=== PATIENT | female | born 1990 | race American Indian/Alaskan Native ===

== ENCOUNTER 2016-06-22 15:16 | Emergency (ER) | payer SELFPAY ==
[2016-06-22] MEDS ORDERED: TYLENOL ONE (16:36)
[2016-06-22] MEDS ORDERED: TYLENOL PO ONE (16:41)
[2016-06-22] MEDS ORDERED: TORADOL IM ONE (19:55)
--- NOTE | 2016-06-22 20:01 | Emergency Department Report ---
ED ENT HPI - General Chief complaint: Anxiety Stated complaint: CHEST PAIN Time Seen by Provider: 06/22/16 19:54 Source: patient Mode of arrival: Ambulatory Limitations: No Limitations - History of Present Illness Initial comments: 26 y/o female complain toothache x 3 days with mild edema note to the right jaw. MD complaint: tooth pain Onset/Timin -: days(s) Location: tooth # (30 and 32) Severity scale (0 -10): 8 Quality: aching Consistency: constant Improves with: none Worsens with: none Context- Dental: poor dental care Associated Symptoms: gum swelling - Related Data Previous Rx's Medication Instructions Recorded Last Taken Type Acetaminophen/Codeine [Tylenol #3] 1 tab PO Q4HR PRN #15 tablet 06/22/16 Unknown Rx Penicillin Vk [Veetids TAB] 250 mg PO QID #28 tablet 06/22/16 Unknown Rx Allergies Allergy/AdvReac Type Severity Reaction Status Date / Time No Known Allergies Allergy Unverified 06/22/16 15:30 ED Dental HPI - General Chief complaint: Anxiety Stated complaint: CHEST PAIN Time Seen by Provider: 06/22/16 19:54 Source: patient Mode of arrival: Ambulatory Limitations: No Limitations - Related Data Previous Rx's Medication Instructions Recorded Last Taken Type Acetaminophen/Codeine [Tylenol #3] 1 tab PO Q4HR PRN #15 tablet 06/22/16 Unknown Rx Penicillin Vk [Veetids TAB] 250 mg PO QID #28 tablet 06/22/16 Unknown Rx Allergies Allergy/AdvReac Type Severity Reaction Status Date / Time No Known Allergies Allergy Unverified 06/22/16 15:30 ED Review of Systems ROS: Stated complaint: CHEST PAIN Other details as noted in HPI Constitutional: denies: chills, fever Eyes: denies: eye pain, eye discharge, vision change ENT: dental pain. denies: ear pain, throat pain Respiratory: denies: cough, shortness of breath, wheezing Cardiovascular: denies: chest pain, palpitations Endocrine: no symptoms reported Gastrointestinal: denies: abdominal pain, nausea, diarrhea Genitourinary: denies: urgency, dysuria, discharge Musculoskeletal: denies: back pain, joint swelling, arthralgia Skin: denies: rash, lesions Neurological: denies: headache, weakness, paresthesias Psychiatric: denies: anxiety, depression Hematological/Lymphatic: denies: easy bleeding, easy bruising ED Past Medical Hx - Past Medical History Additional medical history: Anxiety, panic attacks - Surgical History Past Surgical History?: No - Social History Smoking Status: Current Some Day Smoker Substance Use Type: None - Medications Home Medications: Home Medications Medication Instructions Recorded Confirmed Last Taken Type Acetaminophen/Codeine [Tylenol #3] 1 tab PO Q4HR PRN #15 tablet 06/22/16 Unknown Rx Penicillin Vk [Veetids TAB] 250 mg PO QID #28 tablet 06/22/16 Unknown Rx ED Physical Exam - General Limitations: No Limitations General appearance: alert, in no apparent distress - Head Head exam: Present: atraumatic, normocephalic - Eye Eye exam: Present: normal appearance, PERRL - ENT ENT exam: Present: mucous membranes moist - Expanded ENT Exam Expanded Mouth exam: Absent: drooling, trismus, muffled voice Teeth exam: Present: dental caries, fractured tooth # Throat exam: Positive: normal inspection (29 and 32) - Neck Neck exam: Present: normal inspection - Respiratory Respiratory exam: Present: normal lung sounds bilaterally. Absent: respiratory distress, wheezes, rales - Cardiovascular Cardiovascular Exam: Present: regular rate, normal rhythm. Absent: systolic murmur, diastolic murmur, rubs, gallop - GI/Abdominal GI/Abdominal exam: Present: soft, normal bowel sounds - Extremities Exam Extremities exam: Present: normal inspection - Back Exam Back exam: Present: normal inspection - Neurological Exam Neurological exam: Present: alert, oriented X3 - Psychiatric Psychiatric exam: Present: normal affect, normal mood - Skin Skin exam: Present: warm, dry, intact, normal color. Absent: rash ED Course Vital Signs 06/22/16 06/22/16 15:30 16:42 Temperature 99.3 F Pulse Rate 105 H Respiratory 18 18 Rate Blood Pressure 111/77 O2 Sat by Pulse 100 Oximetry ED Medical Decision Making - Medical Decision Making toothache fracture teeth number 29 and 32 pt unable to have tooth extracted at present due to medicaid Critical care attestation.: If time is entered above; I have spent that time in minutes in the direct care of this critically ill patient, excluding procedure time. ED Disposition Clinical Impression: Toothache Disposition: DISCHARGED TO HOME OR SELFCARE Is pt being admited?: No Does the pt Need Aspirin: No Condition: Stable Instructions: Dental Abscess (ED), Dental Caries (ED), Toothache (ED) Prescriptions: Acetaminophen/Codeine [Tylenol #3] 1 tab PO Q4HR PRN #15 tablet PRN Reason: Pain Penicillin Vk [Veetids TAB] 250 mg PO QID #28 tablet Referrals: PRIMARY CARE, [Primary Care Provider] - 3-5 Days [facility] [Outside] - 3-5 Days [facility] [Outside] - 3-5 Days Forms: Work/School Release Form(ED) Time of Disposition: 20:02
[2016-06-22 20:14] VITALS: BP 120/83
== END 2016-06-22 20:13 | disposition home or self-care (01) ==
LOC: ED 15:16
DX: K08.89 Other specified disorders of teeth and supporting structures (principal); F41.9 Anxiety disorder, unspecified; F41.0 Panic disorder [episodic paroxysmal anxiety]; F17.200 Nicotine dependence, unspecified, uncomplicated
CPT/HCPCS: 96372; 99282; J1885

== ENCOUNTER 2016-08-07 19:28 | Emergency (ER) | payer MEDICAID ==
[2016-08-07 20:18] VITALS: BP 103/67
[2016-08-07 20:35] LABS: Basophils % (Auto) 1.1 % (0.0-1.8); Eosinophils % (Auto) 3.6 % (0.0-4.3); Hematocrit 40.7 % (30.3-42.9); Hemoglobin 13.5 gm/dl (10.1-14.3); Mean Corpuscular HGB Conc 33 % (30-34); Mean Corpuscular Hemoglobin 28 pg (28-32); Mean Corpuscular Volume 83 fl (79-97); Platelet Count 270 K/mm3 (140-440); Red Cell Distribution Width 14.4 % (13.2-15.2); White Blood Count 6.7 K/mm3 (4.5-11.0)
[2016-08-07 20:45] LABS: Alanine Aminotransferase 14 units/L (7-56); Albumin 3.9 g/dL (3.9-5); Albumin/Globulin Ratio 1.3 %; Alkaline Phosphatase 63 units/L (35-129); Anion Gap 16 mmol/L; BUN/Creatinine Ratio 11.66; Bilirubin,Total < 0.2 mg/dL (0.1-1.2); Blood Urea Nitrogen 7 mg/dL (7-17); Calcium 8.7 mg/dL (8.4-10.2); Carbon Dioxide 25 mmol/L (22-30); Chloride 103.8 mmol/L (98-107); Glucose 83 mg/dL (65-100); Lipase 19 units/L (13-60); Potassium 4.2 mmol/L (3.6-5.0); Sodium 141 mmol/L (137-145); Total Protein 6.9 g/dL (6.3-8.2)
[2016-08-07 21:08] LABS: Bilirubin,Urine NEG (Negative); Blood,Urine NEG (Negative); Ketones,Urine NEG (Negative); Leukocyte Esterase,Urine TR (Negative); Mucus,Urine FEW /HPF; Nitrite,Urine NEG (Negative); Urobilinogen,Urine < 2.0 mg/dL (<2.0)
[2016-08-08] MEDS ORDERED: TYLENOL ONE (03:55)
[2016-08-08] MEDS ORDERED: TYLENOL PO ONE (04:00)
--- NOTE | 2016-08-09 01:31 | ED Elopement Review ---
ED Pt Elopement review - Results review Lab results: Laboratory Tests 08/07/16 08/07/16 08/07/16 20:04 20:04 20:42 WBC 6.7 RBC 4.90 Hgb 13.5 Hct 40.7 MCV 83 MCH 28 MCHC 33 RDW 14.4 Plt Count 270 Lymph % (Auto) 41.2 H [place] % (Auto) 6.2 Eos % (Auto) 3.6 Baso % (Auto) 1.1 Lymph # 2.8 [place] # 0.4 Eos # 0.2 Baso # 0.1 Seg Neutrophils % 47.9 Seg Neutrophils # 3.2 Sodium 141 Potassium 4.2 Chloride 103.8 Carbon Dioxide 25 Anion Gap 16 BUN 7 Creatinine 0.6 L Estimated GFR > 60 BUN/Creatinine Ratio 11.66 Glucose 83 Calcium 8.7 Total Bilirubin < 0.2 AST 12 ALT 14 Alkaline Phosphatase 63 Total Protein 6.9 Albumin 3.9 Albumin/Globulin Ratio 1.3 Lipase 19 Urine Color Yellow Urine Turbidity Slightly-cloudy Urine pH 5.0 Ur Specific [place] 1.019 Urine Protein 30 mg/dl Urine Glucose (UA) Neg Urine Ketones Neg Urine Blood Neg Urine Nitrite Neg Urine Bilirubin Neg Urine Urobilinogen < 2.0 Ur Leukocyte Esterase Tr Urine WBC (Auto) 3.0 Urine RBC (Auto) 3.0 U Epithel Cells (Auto) 21.0 H Urine Mucus Few Urine HCG, Qual Negative - Call Back decision Pt Call Back Decision: No action required
== END 2016-08-07 23:00 | disposition left against medical advice (07) ==
LOC: ED 19:28
DX: R10.30 Lower abdominal pain, unspecified (principal); N89.8 Other specified noninflammatory disorders of vagina; R06.02 Shortness of breath; F17.200 Nicotine dependence, unspecified, uncomplicated; Z53.21 Procedure and treatment not carried out due to patient leaving prior to being seen by health care provider
CPT/HCPCS: 36415; 80053; 81001; 81025; 83690; 85025

== ENCOUNTER 2016-08-11 09:00 | Emergency (ER) | payer MEDICAID ==
[2016-08-11 09:24] VITALS: BP 105/69
[2016-08-11 09:57] LABS: Basophils % (Auto) 0.8 % (0.0-1.8); Eosinophils % (Auto) 3.9 % (0.0-4.3); Hematocrit 41.7 % (30.3-42.9); Hemoglobin 13.6 gm/dl (10.1-14.3); Mean Corpuscular HGB Conc 33 % (30-34); Mean Corpuscular Hemoglobin 27 pg (28-32); Mean Corpuscular Volume 84 fl (79-97); Platelet Count 286 K/mm3 (140-440); Red Blood Count 4.97 M/mm3 (3.65-5.03); Red Cell Distribution Width 14.4 % (13.2-15.2)
[2016-08-11 10:08] LABS: Alanine Aminotransferase 14 units/L (7-56); Albumin 3.9 g/dL (3.9-5); Albumin/Globulin Ratio 1.2 %; Alkaline Phosphatase 65 units/L (35-129); Anion Gap 17 mmol/L; Bilirubin,Total 0.2 mg/dL (0.1-1.2); Blood Urea Nitrogen 10 mg/dL (7-17); Calcium 8.6 mg/dL (8.4-10.2); Carbon Dioxide 23 mmol/L (22-30); Chloride 99.6 mmol/L (98-107); Glucose 82 mg/dL (65-100); Lipase 21 units/L (13-60); Potassium 4.1 mmol/L (3.6-5.0); Sodium 135 mmol/L (137-145); Total Protein 7.1 g/dL (6.3-8.2)
--- NOTE | 2016-08-11 10:50 | Emergency Department Report ---
<HERNANDEZ HUERTA - Last Filed: 08/11/16 18:46> ED Abdominal Pain HPI - General Chief Complaint: Abdominal Pain Stated Complaint: ABD PAIN Time Seen by Provider: 08/11/16 10:47 Source: patient Mode of arrival: Ambulatory Limitations: No Limitations - History of Present Illness Initial Comments: Patient complaining of 2 weeks of crampy lower abdominal pain with abnormal vaginal discharge. Patient denies fever or chills, nausea vomiting or diarrhea. MD Complaint: abdominal pain -: week(s) (2) Location: suprapubic Radiation: none Migration to: no migration Severity scale (0 -10): 4 Quality: aching Consistency: intermittent Worsens With: movement Associated Symptoms: denies: nausea, vomiting, diarrhea, constipation - Related Data LMP (females 10-50): unknown Previous Rx's Medication Instructions Recorded Last Taken Type Sulfamethoxazole/Trimethoprim 1 each PO BID #10 tablet 08/11/16 Unknown Rx [Bactrim DS TAB] Allergies Allergy/AdvReac Type Severity Reaction Status Date / Time No Known Allergies Allergy Unverified 06/22/16 15:30 ED Review of Systems ROS: Stated complaint: ABD PAIN Other details as noted in HPI Constitutional: denies: chills, fever, malaise Eyes: denies: eye discharge, vision change ENT: denies: throat pain Respiratory: denies: cough, shortness of breath, SOB with exertion Gastrointestinal: abdominal pain. denies: nausea, vomiting, diarrhea, constipation Genitourinary: discharge, abnormal menses (patient had a baby April, and started Depo-Provera in May.). denies: urgency, dysuria, frequency, hematuria, dyspareunia Musculoskeletal: denies: back pain, joint swelling, arthralgia Skin: denies: rash, lesions Neurological: denies: headache, weakness ED Past Medical Hx - Past Medical History Previous Medical History?: Yes Hx Psychiatric Treatment: Yes (anxiety) Additional medical history: Anxiety, panic attacks - Social History Smoking Status: Current Some Day Smoker Substance Use Type: None - Medications Home Medications: Home Medications Medication Instructions Recorded Confirmed Last Taken Type Sulfamethoxazole/Trimethoprim 1 each PO BID #10 tablet 08/11/16 Unknown Rx [Bactrim DS TAB] ED Physical Exam - General Limitations: No Limitations General appearance: alert, in no apparent distress - Head Head exam: Present: atraumatic, normocephalic - Eye Eye exam: Present: PERRL, EOMI, conjunctival injection - ENT ENT exam: Present: normal exam, mucous membranes moist - Neck Neck exam: Present: normal inspection, full ROM. Absent: tenderness, meningismus, lymphadenopathy - Respiratory Respiratory exam: Present: normal lung sounds bilaterally. Absent: respiratory distress - Cardiovascular Cardiovascular Exam: Present: regular rate - GI/Abdominal GI/Abdominal exam: Present: soft, tenderness (mild suprapubic tenderness). Absent: distended, guarding, rebound, rigid - External exam: Present: normal external exam (pelvic exam performed by ELISA LAI) . Absent: erythema, swelling, lesions, lacerations, ecchymosis, bleeding Speculum exam: Present: normal speculum exam. Absent: erythema, vaginal discharge, cervical discharge, vaginal bleeding, foreign body, tissue, laceration Bi-manual exam: Present: normal bi-manual exam. Absent: cervical motion tendernes, adnexal tenderness, adnexal mass, uterine enlargement, uterine tenderness - Extremities Exam Extremities exam: Present: normal inspection, normal capillary refill - Back Exam Back exam: Absent: CVA tenderness (R), CVA tenderness (L) - Neurological Exam Neurological exam: Present: alert, oriented X3, normal gait - Skin Skin exam: Present: warm, dry, intact, normal color. Absent: rash ED Course Vital Signs 08/11/16 09:20 Temperature 98.5 F Pulse Rate 79 Respiratory 18 Rate Blood Pressure 105/69 O2 Sat by Pulse 97 Oximetry - Reevaluation(s) Reevaluation #1: 08/11/16 12:37 Patient resting comfortably in room. Normotensive normal cardiac afebrile. Discussed exam and lab results with patient and we would treat his cystitis/ UTI. Patient advised to return the ER for any fever chills, nausea vomiting, increased pain, or any concerns whatsoever. ED Medical Decision Making - Lab Data Result diagrams: 08/11/16 09:34 08/11/16 09:34 Lab Results 08/11/16 08/11/16 Range/Units 09:34 09:34 WBC 8.0 (4.5-11.0) K/mm3 RBC 4.97 (3.65-5.03) M/mm3 Hgb 13.6 (10.1-14.3) gm/dl Hct 41.7 (30.3-42.9) % MCV 84 (79-97) fl MCH 27 L (28-32) pg MCHC 33 (30-34) % RDW 14.4 (13.2-15.2) % Plt Count 286 (140-440) K/mm3 Lymph % (Auto) 40.5 H (13.4-35.0) % [place] % (Auto) 7.4 H (0.0-7.3) % Eos % (Auto) 3.9 (0.0-4.3) % Baso % (Auto) 0.8 (0.0-1.8) % Lymph # 3.2 (1.2-5.4) K/mm3 [place] # 0.6 (0.0-0.8) K/mm3 Eos # 0.3 (0.0-0.4) K/mm3 Baso # 0.1 (0.0-0.1) K/mm3 Seg Neutrophils % 47.4 (40.0-70.0) % Seg Neutrophils # 3.8 (1.8-7.7) K/mm3 Sodium 135 L (137-145) mmol/L Potassium 4.1 (3.6-5.0) mmol/L Chloride 99.6 (98-107) mmol/L Carbon Dioxide 23 (22-30) mmol/L Anion Gap 17 mmol/L BUN 10 (7-17) mg/dL Creatinine 0.5 L (0.7-1.2) mg/dL Estimated GFR > 60 ml/min BUN/Creatinine Ratio 20.00 % Glucose 82 (65-100) mg/dL Calcium 8.6 (8.4-10.2) mg/dL Total Bilirubin 0.2 (0.1-1.2) mg/dL AST 13 (5-40) units/L ALT 14 (7-56) units/L Alkaline Phosphatase 65 (35-129) units/L Total Protein 7.1 (6.3-8.2) g/dL Albumin 3.9 (3.9-5) g/dL Albumin/Globulin Ratio 1.2 % Lipase 21 (13-60) units/L Critical care attestation.: If time is entered above; I have spent that time in minutes in the direct care of this critically ill patient, excluding procedure time. ED Disposition Disposition: DISCHARGED TO HOME OR SELFCARE Is pt being admited?: No Condition: Stable Instructions: Urinary Tract Infection in Women (ED), Abdominal Pain (ED) Prescriptions: Sulfamethoxazole/Trimethoprim [Bactrim DS TAB] 1 each PO BID #10 tablet Referrals: PRIMARY CARE, [Primary Care Provider] - 3-5 Days ELANA AMIN MD [Staff Physician] - 3-5 Days <LEIF CARPENTER - Last Filed: 08/13/16 15:27> ED Medical Decision Making - Lab Data Result diagrams: 08/11/16 09:34 08/11/16 09:34
[2016-08-11 11:02] LABS: Bilirubin,Urine NEG (Negative); Blood,Urine NEG (Negative); Ketones,Urine TR mg/dL (Negative); Leukocyte Esterase,Urine SM (Negative); Mucus,Urine 2+ /HPF; Nitrite,Urine NEG (Negative); Protein,Urine <15 mg/dL mg/dL (Negative); Urobilinogen,Urine < 2.0 mg/dL (<2.0)
== END 2016-08-11 12:51 | disposition home or self-care (01) ==
LOC: ED 09:00
DX: R10.30 Lower abdominal pain, unspecified (principal); F41.9 Anxiety disorder, unspecified; Z72.0 Tobacco use
CPT/HCPCS: 36415; 80053; 81001; 81025; 83690; 85025; 87210; 87591; 99284

== ENCOUNTER 2016-09-03 07:51 | Emergency (ER) | payer MEDICAID ==
[2016-09-03 08:09] VITALS: BP 96/70
[2016-09-03 08:33] LABS: Hematocrit 38.9 % (30.3-42.9); Hemoglobin 12.8 gm/dl (10.1-14.3); Mean Corpuscular HGB Conc 33 % (30-34); Mean Corpuscular Hemoglobin 28 pg (28-32); Mean Corpuscular Volume 85 fl (79-97); Platelet Count 275 K/mm3 (140-440); Red Cell Distribution Width 13.5 % (13.2-15.2); White Blood Count 6.4 K/mm3 (4.5-11.0)
[2016-09-03 10:27] LABS: Blastocytes % (Manual) 0 %
[2016-09-03 10:28] LABS: Basophils % (Manual) 0 % (0.0-1.8)
[2016-09-03 10:33] LABS: Diff Status Complete; RBC Morphology Normal
== END 2016-09-03 10:05 | disposition left against medical advice (07) ==
LOC: ED 07:51
DX: N93.9 Abnormal uterine and vaginal bleeding, unspecified (principal); R10.9 Unspecified abdominal pain; F41.9 Anxiety disorder, unspecified; F17.200 Nicotine dependence, unspecified, uncomplicated; Z53.21 Procedure and treatment not carried out due to patient leaving prior to being seen by health care provider
CPT/HCPCS: 36415; 84703; 85007; 85025

== ENCOUNTER 2017-02-28 10:00 | Emergency (ER) | payer MEDICAID ==
--- NOTE | 2017-02-28 12:24 | Emergency Department Report ---
Chief Complaint: Chest Pain Stated Complaint: CHEST PAIN FOR 4 WEEKS Time Seen by Provider: 02/28/17 11:35 - HPI History of Present Illness: Patient reports that she's been having chest pain ongoing on and off. She says she went on 01/15/2017 to [facility] and they did a EKG and some lab work and told her that they didn't see anything. Patient says she is still having chest pain sometimes is located on the right side of her chest then to the mid chest and then to the left side of her chest. She denies any history of blood clots or any family history of blood clots. Denies any recent surgery. Denies any long distance travel by airplane or car recently. Denies any swelling in her legs. Denies being on control. Denies any recent bed rest. Pain is 4-10. Patient said that she is worried that she has heart disease. She denies any cough or shortness of breath. - ROS Review of Systems: All systems are negative unless stated in HPI above - Exam Vital Signs: Vital Signs 02/28/17 11:12 Temperature 98 F Pulse Rate 66 Respiratory 20 Rate Blood Pressure 98/68 O2 Sat by Pulse 99 Oximetry Physical Exam: Gen.: This is a 27-year-old female well-nourished well-developed in no acute distress. CV: S1, S2. Regular rate rhythm. Lungs: Clear to auscultate bilaterally, no rhonchi wheezes or rales Extremity: No clubbing, cyanosis or edema. +2 pulses in all extremities. No neurovascular compromise MSE screening note: Focused history and physical exam performed. Due to findings the following was ordered: ED Medical Decision Making - Medical Decision Making MDM: Patient screened by provider in triage area. Appropriate protocol initiated and patient to be seen in main ED by ED Disposition for MSE Condition: Stable Referrals: PRIMARY CARE, [Primary Care Provider] - 3-5 Days
[2017-02-28 13:48] LABS: Bacteria,Urine 1+ /HPF (Negative); Bilirubin,Urine NEG (Negative); Blood,Urine NEG (Negative); Ketones,Urine TR mg/dL (Negative); Leukocyte Esterase,Urine NEG (Negative); Mucus,Urine 3+ /HPF; Nitrite,Urine NEG (Negative); Protein,Urine <15 mg/dL mg/dL (Negative); RBC,Urine < 1.0 /HPF (0.0-6.0); Urobilinogen,Urine < 2.0 mg/dL (<2.0)
--- NOTE | 2017-02-28 13:56 | Emergency Department Report ---
ED Chest Pain HPI - General Chief Complaint: Chest Pain Stated Complaint: CHEST PAIN FOR 4 WEEKS Time Seen by Provider: 02/28/17 12:23 Source: patient Mode of arrival: Ambulatory Limitations: No Limitations - History of Present Illness Initial Comments: 27-year-old female presents to the emergency department with chest pain. Patient complaining of chest pain worse with deep breath over the last month. She was recently seen in the emergency department and had a negative workup. She states the pain is often there and gets worse with deep inspiration. She does not have any shortness of breath with the symptoms. She does occasionally feel palpitations. She is a smoker. She denies fevers chills nausea vomiting. MD Complaint: chest pain -: Gradual, month(s) (1) Onset: during rest, during exertion Pain Location: left chest Quality: tightness Improves With: nothing Worsens With: nothing Other Symptoms: cough. denies: fever, syncope, rash, acid taste in mouth, leg swelling, palpitations, burping - Related Data Previous Rx's Medication Instructions Recorded Last Taken Type Ibuprofen 400 mg PO TID #30 tablet 02/28/17 Unknown Rx Allergies Allergy/AdvReac Type Severity Reaction Status Date / Time No Known Allergies Allergy Unverified 06/22/16 15:30 Heart Score - HEART Score History: Slightly suspicious EKG: Normal Age: < 45 Risk factors: 1-2 risk factors Troponin: < normal limit HEART Score: 1 - Critical Actions Critical Actions: 0-3 pts:0.9-1.7%risk of adverse cardiac event.Candidate for discharge ED Review of Systems ROS: Stated complaint: CHEST PAIN FOR 4 WEEKS Other details as noted in HPI Comment: All other systems reviewed and negative Constitutional: denies: chills, fever ENT: denies: ear pain, throat pain Respiratory: denies: cough, shortness of breath, wheezing Cardiovascular: denies: chest pain, palpitations Endocrine: no symptoms reported Gastrointestinal: denies: abdominal pain, nausea, diarrhea Genitourinary: denies: urgency, dysuria, discharge Musculoskeletal: denies: back pain, joint swelling, arthralgia Skin: denies: rash, lesions Neurological: denies: headache, weakness, paresthesias Psychiatric: denies: anxiety, depression Hematological/Lymphatic: denies: easy bleeding, easy bruising ED Past Medical Hx - Past Medical History Hx Psychiatric Treatment: Yes (anxiety) Additional medical history: Anxiety, panic attacks - Social History Smoking Status: Current Every Day Smoker Substance Use Type: None - Medications Home Medications: Home Medications Medication Instructions Recorded Confirmed Last Taken Type Ibuprofen 400 mg PO TID #30 tablet 02/28/17 Unknown Rx ED Physical Exam - General Limitations: No Limitations General appearance: alert, in no apparent distress - Head Head exam: Present: atraumatic, normocephalic - Eye Eye exam: Present: normal appearance - ENT ENT exam: Present: mucous membranes moist - Neck Neck exam: Present: normal inspection - Respiratory Respiratory exam: Present: normal lung sounds bilaterally. Absent: respiratory distress - Cardiovascular Cardiovascular Exam: Present: regular rate, normal rhythm. Absent: systolic murmur, diastolic murmur, rubs, gallop - GI/Abdominal GI/Abdominal exam: Present: soft, normal bowel sounds - Extremities Exam Extremities exam: Present: normal inspection - Back Exam Back exam: Present: normal inspection - Neurological Exam Neurological exam: Present: alert, oriented X3 - Psychiatric Psychiatric exam: Present: normal affect, normal mood - Skin Skin exam: Present: warm, dry, intact, normal color. Absent: rash ED Course Vital Signs 02/28/17 02/28/17 02/28/17 11:12 13:24 13:31 Temperature 98 F 98.4 F Pulse Rate 66 71 Respiratory 20 16 16 Rate Blood Pressure 98/68 104/68 O2 Sat by Pulse 99 98 98 Oximetry ED Medical Decision Making - Lab Data Result diagrams: 02/28/17 13:37 02/28/17 13:39 Laboratory Results - last 24 hr 02/28/17 02/28/17 02/28/17 13:37 13:37 13:39 WBC 6.9 RBC 4.72 Hgb 12.8 Hct 40.2 MCV 85 MCH 27 L MCHC 32 RDW 14.1 Plt Count 258 Lymph % (Auto) 39.[address] [facility] % (Auto) 5.7 Eos % (Auto) 3.6 Baso % (Auto) 0.9 Lymph # 2.7 [facility] # 0.4 Eos # 0.2 Baso # 0.1 Seg Neutrophils % 50.4 Seg Neutrophils # 3.5 D-Dimer Sodium 140 Potassium 3.7 Chloride 102.8 Carbon Dioxide 24 Anion Gap 17 BUN 8 Creatinine 0.5 L Estimated GFR > 60 BUN/Creatinine Ratio 16 Glucose 85 Calcium 8.2 L Troponin T < 0.010 HCG, Qual Negative Urine Color Urine Turbidity Urine pH Ur Specific [place] Urine Protein Urine Glucose (UA) Urine Ketones Urine Blood Urine Nitrite Urine Bilirubin Urine Urobilinogen Ur Leukocyte Esterase Urine WBC (Auto) Urine RBC (Auto) U Epithel Cells (Auto) Urine Bacteria (Auto) Urine Mucus 02/28/17 02/28/17 14:48 Unknown WBC RBC Hgb Hct MCV MCH MCHC RDW Plt Count Lymph % (Auto) [facility] % (Auto) Eos % (Auto) Baso % (Auto) Lymph # [facility] # Eos # Baso # Seg Neutrophils % Seg Neutrophils # D-Dimer < 135.00 Sodium Potassium Chloride Carbon Dioxide Anion Gap BUN Creatinine Estimated GFR BUN/Creatinine Ratio Glucose Calcium Troponin T HCG, Qual Urine Color Yellow Urine Turbidity Clear Urine pH 5.0 Ur Specific [place] 1.025 Urine Protein <15 mg/dl Urine Glucose (UA) Neg Urine Ketones Tr Urine Blood Neg Urine Nitrite Neg Urine Bilirubin Neg Urine Urobilinogen < 2.0 Ur Leukocyte Esterase Neg Urine WBC (Auto) 1.0 Urine RBC (Auto) < 1.0 U Epithel Cells (Auto) 2.0 Urine Bacteria (Auto) 1+ Urine Mucus 3+ - EKG Data -: EKG Interpreted by Ma - EKG Data 02/28/17 14:02 Sinus 72 normal axis normal intervals and no ST-T wave changes - Medical Decision Making 27-year-old female here with complaint of chest pain. Patient has a complaint of sharp chest pain intermittently after deep breat. EKG is unremarkable. Plan check d-dimer and chest x-ray and will reassess. Workup negative. Plan to discharge patient after some NSAIDs. Portions of this chart were dictated with dictation software. There may be dictation errors contained within this note. Critical care attestation.: If time is entered above; I have spent that time in minutes in the direct care of this critically ill patient, excluding procedure time. ED Disposition Clinical Impression: Chest pain Disposition: - TO HOME OR SELFCARE Is pt being admited?: No Condition: Stable Instructions: Chest Pain (ED) Prescriptions: Ibuprofen 400 mg PO TID #30 tablet Referrals: PRIMARY CARE, [Primary Care Provider] - 3-5 Days
[2017-02-28 14:24] LABS: Basophils % (Auto) 0.9 % (0.0-1.8); Eosinophils % (Auto) 3.6 % (0.0-4.3); Hematocrit 40.2 % (30.3-42.9); Hemoglobin 12.8 gm/dl (10.1-14.3); Mean Corpuscular HGB Conc 32 % (30-34); Mean Corpuscular Hemoglobin 27 pg (28-32); Mean Corpuscular Volume 85 fl (79-97); Platelet Count 258 K/mm3 (140-440); Red Blood Count 4.72 M/mm3 (3.65-5.03); Red Cell Distribution Width 14.1 % (13.2-15.2); White Blood Count 6.9 K/mm3 (4.5-11.0)
[2017-02-28 14:44] LABS: Anion Gap 17 mmol/L; BUN/Creatinine Ratio 16; Blood Urea Nitrogen 8 mg/dL (7-17); Calcium 8.2 mg/dL (8.4-10.2); Carbon Dioxide 24 mmol/L (22-30); Chloride 102.8 mmol/L (98-107); Glucose 85 mg/dL (65-100); Potassium 3.7 mmol/L (3.6-5.0); Sodium 140 mmol/L (137-145)
[2017-02-28] MEDS ORDERED: MOTRIN PO ONE (15:27)
--- NOTE | 2017-02-28 15:29 | XRay Report ---
ROUTINE CHEST, TWO VIEWS: HISTORY: chest pain. The trachea, heart, mediastinal contour, lung rivas and bony thorax are unremarkable. Nipple shadows are noted. IMPRESSION: No acute cardiopulmonary process identified.
[2017-02-28 15:33] VITALS: BP 102/60
== END 2017-02-28 15:38 | disposition home or self-care (01) ==
LOC: ED 10:00
DX: R07.9 Chest pain, unspecified (principal); F41.9 Anxiety disorder, unspecified; F40.9 Phobic anxiety disorder, unspecified; F17.200 Nicotine dependence, unspecified, uncomplicated
CPT/HCPCS: 36415; 71020; 80048; 81001; 84484; 84703; 85025; 85379; 93005; 93010